=== PATIENT | female | born 1960 | race Caucasian/White ===

== ENCOUNTER 2016-09-23 17:54 | Emergency (ER) | payer SELFPAY ==
[~2016-09-23] VITALS: Ht 162.6 cm; Wt 54.5 kg
[~2016-09-23 17:54] MED LIST: PRE20 PO
[2016-09-23 18:16] VITALS: BP 138/81; PULSE 78; RESP 14; O2SAT 99
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
[2016-09-23 20:30] VITALS: BP 135/90; PULSE 80; RESP 16
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
== END 2016-09-23 21:13 | disposition home or self-care (01) ==
LOC: SED 17:54
DX: S62.347A Nondisplaced fracture of base of fifth metacarpal bone, left hand, initial encounter for closed fracture (principal); T76.11XA Adult physical abuse, suspected, initial encounter; Y04.8XXA Assault by other bodily force, initial encounter; Y92.009 Unspecified place in unspecified non-institutional (private) residence as the place of occurrence of the external cause; Y93.89 Activity, other specified; Y99.8 Other external cause status; F10.120 Alcohol abuse with intoxication, uncomplicated; J44.9 Chronic obstructive pulmonary disease, unspecified; F17.200 Nicotine dependence, unspecified, uncomplicated